=== PATIENT | female | born 1995 | race Caucasian/White ===

== ENCOUNTER 2021-05-22 11:29 | Emergency (ER) | payer OTHER ==
[2021-05-22] MEDS ORDERED: Sodium Chloride 0.9% 10 ML Syringe FLUSH PRN (11:31)
[2021-05-22 12:08] LABS: PTT,PARTIAL THROMBOPLSTIN TIME 26.5 SEC (20.5-30.9)
[2021-05-22 12:18] LABS: BARBITURATE SCREEN,URINE NEGATIVE (NEGATIVE); BENZODIAZEPINES SCREEN,URINE POSITIVE (NEGATIVE); BUPRENORPHINE SCREEN,URINE NEGATIVE (NEGATIVE); METHAMPHETAMINE SCREEN, URINE NEGATIVE (NEGATIVE); THC SCREEN,URINE 50 NG/ML NEGATIVE (NEGATIVE)
[2021-05-22 12:19] LABS: CHLORIDE,CL 105 mmol/L (98-107); SODIUM,NA 139 mmol/L (136-145)
[2021-05-22 12:20] LABS: ACETAMINOPHEN 0 ug/ml (10-30); ANION GAP 14.7 mmol/L (5-15)
[2021-05-22 13:38] LABS: CORONAVIRUS COVID-19 NAA NEGATIVE (NEGATIVE); RESPIRATORY SYNCYTIAL VIR NAA NEGATIVE (NEGATIVE)
[2021-05-22 16:04] VITALS: BP 101/64; PULSE 97
== END 2021-05-22 16:50 ==
LOC: VM.ED 11:29
DX: F32.A Depression, unspecified (principal); Z88.0 Allergy status to penicillin; Z20.822 Contact with and (suspected) exposure to COVID-19
CPT/HCPCS: 0241U; 36415; 80053; 80143; 80179; 80305-QW; 80307; 81001; 81025; 83735; 84100; 84443; 85025; 85610; 85730; 86140; 93005; 93010; 99284; 99285-25